=== PATIENT | female | born 1980 | race Caucasian/White ===

== ENCOUNTER 2018-04-28 17:27 | Inpatient (IN) | payer OTHER ==
--- NOTE | 2018-04-28 18:20 | ED ---
Fever HPI - General Chief Complaint: Fever Stated Complaint: abd pain Time Seen by Provider: 04/28/18 17:44 Source: patient, EMS Mode of arrival: EMS Limitations: no limitations - History of Present Illness Initial Comments: His 37-year-old white female presents with a complaint of having fever and chills for approximately 5 days. She has also had a slight cough with yellowish production. She complains of some general myalgias. She also has had some nausea and dry heaves. She states that the symptoms have been worse over the past couple of days. She followed up with her primary care physician this morning and states that her blood pressure was slightly low at approximately 95 systolic and sent to the emergency department are she states that while at the emergency Department they found that she does have a diagnosis of pneumonia as well as some pancreatitis. She states that she has some mild tenderness diffusely to the abdomen. There is no other complaints or modifying factors. - Related Data Home Medications Medication Instructions Recorded Confirmed Cholecalciferol [Vitamin D3] 1,000 unit PO BID 04/28/18 04/28/18 Escitalopram [Lexapro] 10 mg PO DAILY 04/28/18 04/28/18 Fexofenadine HCl [Mirian Allergy] 180 mg PO DAILY 04/28/18 04/28/18 Flaxseed Oil [[place]-3 Flaxseed Oil] 1,000 mg PO BID 04/28/18 04/28/18 Fluticasone Nasal [place] [Flonase 2 spr EA NOSTRIL QAM 04/28/18 04/28/18 Nasal [place]] L.acidoph,Paracasei, B.lactis 1 cap PO DAILY 04/28/18 04/28/18 [Probiotic] Minera Tonic 10 ml PO DAILY 04/28/18 04/28/18 Nervous Fatigue 1 tab PO BID 04/28/18 04/28/18 Nutri Calm 1 tab PO DAILY PRN 04/28/18 04/28/18 Pnv No.95/Ferrous Fum/Folic AC 1 tab PO DAILY 04/28/18 04/28/18 [ Multivitamin Tablet] Vitamin B Complex 1 cap PO DAILY 04/28/18 04/28/18 Allergies Allergy/AdvReac Type Severity Reaction Status Date / Time amoxicillin Allergy Unknown Verified 04/28/18 17:50 cephalexin [From Keflex] Allergy Unknown Verified 04/28/18 17:50 clavulanic acid Allergy Unknown Verified 04/28/18 17:50 [From Augmentin] pseudoephedrine Allergy Unknown Verified 04/28/18 17:50 Review of Systems ROS Statement: Those systems with pertinent positive or pertinent negative responses have been documented in the HPI. ROS Other: All systems not noted in ROS Statement are negative. 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 VITAL SIGNS: Heart rate, blood pressure, respiratory rate reviewed as recorded in nurse's notes. EYES: Pupils are round and reactive. Extraocular movements are intact. No conjunctival / lid redness or swelling. ENT: No external evidence of injury, swelling, or ecchymosis. Airway is patent. Throat is clear. NECK: Nontender. No swelling or evidence of injury. No subcutaneous emphysema. Trachea is midline. No thyroid mass. HEART: Regular rate and rhythm. Good peripheral pulses. LUNGS/CHEST: Breath sounds clear and equal bilaterally. No rales, rhonchi, or wheezes. No ecchymosis, subcutaneous emphysema, or tenderness. ABDOMEN: There is minimal tenderness to the mid abdomen but no distention. No palpable masses or organomegaly. No peritoneal signs. No abdominal wall swelling or ecchymosis. EXTREMITIES: No extremity tenderness. Normal muscle tone and function. No thoracolumbar tenderness. NEUROLOGIC: Sensation is grossly intact. Cranial nerve exam reveals face is symmetrical, tongue is midline, speech is clear. SKIN: No abrasions or ecchymosis is noted. No induration or masses noted. PSYCHIATRIC: Alert and oriented. Appropriate behavior and judgment. Limitations: no limitations Course Vital Signs 04/28/18 17:34 Temperature 98.5 F Pulse Rate 64 Respiratory 18 Rate Blood Pressure 112/50 O2 Sat by Pulse 96 Oximetry Medical Decision Making - Medical Decision Making The patient was seen and examined. All diagnostics were reviewed. The transfer records were also reviewed. The influenza was negative. White blood cell count was normal. The hemoglobin appears stable. The lipase was minimally elevated at 332. The lactic acid was 2.6. There is 3% bands. The patient's chest x-ray shows right lower lobe pneumonia. The ultrasound of the abdomen is suspicious for a gallbladder wall mass measuring 4.0 cm 1.1 cm and the records recommend to rule out cholangiocarcinoma with MRI scan. Patient did receive some Zofran, IV fluids, Tylenol, and Toradol as well as Zithromax and Rocephin at the transferring facility. She states that she is feeling much improved at this time. It is felt as though she would require admission to the hospital for further treatment. No further diagnostics are felt to be necessary at this time. Case will be discussed with internal medicine shortly. Disposition Clinical Impression: Community acquired pneumonia, Gallbladder mass, Fever, Lightheadedness, Pancreatitis, Lactic acidosis Disposition: ADMITTED IP TO THIS HOSP Condition: Fair Is patient prescribed a controlled substance at d/c from ED?: No Time of Disposition: 18:16 Decision Date: 04/28/18 Decision Time: 18:17
[2018-04-28] MEDS ORDERED: SODIUM CHLORIDE 0.9% 1,000 ML IV STA (18:21)
[2018-04-28] MEDS ORDERED: PNEUMONIA PROTOCOL UTILIZED 1 EACH MISC PO PRN (18:21)
[2018-04-28] MEDS ORDERED: [UNRECOGNIZED DRUG - OTHER] PO PRN (18:25)
[2018-04-28] MEDS ORDERED: ONDANSETRON 4 MG/2 ML VIAL IVP PRN (18:27)
[2018-04-28 19:29] VITALS: BMI 33.2
[2018-04-28] MEDS: CHOLECALCIFEROL 1,000 UNIT TAB PO SCH (20:43)
[2018-04-28] MEDS ORDERED: NON-FORMULARY DRUG (Flaxseed Oil [Omega-3 Flaxseed Oil] 1,000 MG) PO SCH (21:00)
[2018-04-28] MEDS ORDERED: [UNRECOGNIZED DRUG - OTHER] PO SCH (21:00)
[2018-04-28] MEDS: SODIUM CHLORIDE 0.9% 1,000 ML IV SCH ×2 (21:48→22:38)
--- NOTE | 2018-04-28 22:35 | P.HPIM ---
History of Present Illness H&P Date: 04/28/18 Chief Complaint: fever and chills 37-year-old female with history of insulinoma status post resection over 10 years ago. Patient presented the hospital due to 5 days history of fevers and chills associated with coughing denies any chest pain denies any sick contacts denies any recent traveling denies any hemoptysis. Patient is nonsmoker. However today patient felt very sick she almost collapsed while taking a shower. She reports spikes of fevers up to 101.7 for which she was taking Tylenol and ibuprofen. She went to see her PCP today who found her to have low blood pressure and sent her to [facility]. Further workup with [facility] showed negative flu test, elevated lactic acid elevated lipase and chest x-ray showing right lower lobe pneumonia. Abdominal ultrasound performed which suggested gallbladder wall thickening and recommendations were to have an MRI of the abdomen performed to rule out cholangiocarcinoma due to thickening suggestive of a mass the size of 4 x 1.1 cm. Patient was transferred from [facility] to our facility for further GI evaluation.. Patient currently denies any abdominal pain but does report earlier nausea without any vomiting however she was having dry heaves. Patient also reported associated diffuse body aches, denies any sore throat denies any runny nose, denies any ear pain, denies any vision or hearing changes Patient denies any GI bleeding denies any chest pain denies any focal neurologic deficits denies any changes in her urine or bowel habits Review of Systems Pertinent positives as noted in HPI. All other systems were reviewed and are negative Past Medical History Past Medical History: No Reported History Additional Past Medical History / Comment(s): insulinoma? 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 Past Anesthesia/Blood Transfusion Reactions: No Reported Reaction Past Psychological History: Anxiety Smoking Status: Never smoker Past Alcohol Use History: None Reported Past Drug Use History: None Reported - Past Family History Father Family Medical History: Hyperlipidemia, Hypertension Additional Family Medical History / Comment(s): parkinsons, MRSA Medications and Allergies Home Medications Medication Instructions Recorded Confirmed Type Cholecalciferol [Vitamin D3] 1,000 unit PO BID 04/28/18 04/28/18 History Escitalopram [Lexapro] 10 mg PO DAILY 04/28/18 04/28/18 History Fexofenadine HCl [Mirian Allergy] 180 mg PO DAILY 04/28/18 04/28/18 History Flaxseed Oil [[place]-3 Flaxseed Oil] 1,000 mg PO BID 04/28/18 04/28/18 History Fluticasone Nasal [place] [Flonase 2 spr EA NOSTRIL QAM 04/28/18 04/28/18 History Nasal [place]] L.acidoph,Paracasei, B.lactis 1 cap PO DAILY 04/28/18 04/28/18 History [Probiotic] Minera Tonic 10 ml PO DAILY 04/28/18 04/28/18 History Nervous Fatigue 1 tab PO BID 04/28/18 04/28/18 History Nutri Calm 1 tab PO DAILY PRN 04/28/18 04/28/18 History Pnv No.95/Ferrous Fum/Folic AC 1 tab PO DAILY 04/28/18 04/28/18 History [ Multivitamin Tablet] Vitamin B Complex 1 cap PO DAILY 04/28/18 04/28/18 History Allergies Allergy/AdvReac Type Severity Reaction Status Date / Time amoxicillin Allergy Unknown Verified 04/28/18 17:50 cephalexin [From Keflex] Allergy Unknown Verified 04/28/18 17:50 clavulanic acid Allergy Unknown Verified 04/28/18 17:50 [From Augmentin] pseudoephedrine Allergy Unknown Verified 04/28/18 17:50 Beef Containing Products AdvReac Abdominal Verified 04/28/18 19:11 [Beef] Pain corn AdvReac Rash/Hives Verified 04/28/18 19:11 latex AdvReac Rash/Hives Verified 04/28/18 20:55 Milk Containing Products AdvReac Abdominal Verified 04/28/18 19:11 [Dairy] Pain Pork/Porcine Containing AdvReac Abdominal Verified 04/28/18 19:11 Products Pain [Pork] wheat AdvReac Abdominal Verified 04/28/18 19:11 Pain Physical Exam Vitals: Vital Signs Temp Pulse Pulse Resp BP BP Pulse Ox 04/28/18 20:40 98.7 F 60 16 105/52 98 04/28/18 19:19 98.7 F 65 16 104/69 96 04/28/18 18:40 20 115/76 97 04/28/18 17:34 98.5 F 64 18 112/50 96 Intake and Output 04/28/18 04/28/18 04/28/18 06:59 14:59 22:59 Other: Weight 105 kg Constitutional: No acute distress, conversant, pleasant, well-developed Eyes: Anicteric sclerae, moist conjunctiva, no lid-lag Pupils equal round reactive to light ENMT: NC/AT Oropharynx clear, no erythema, or exudates Neck: Supple, FROM, no masses, or JVD No carotid bruits No thyromegaly Lungs: Good breath sounds bilaterally, slight crackles over right lower lung Clear to percussion Normal respiratory effort, no accessory muscle use Cardiovascular: Heart regular in rate and rhythm, No murmurs, gallops, or rubs No peripheral edema Abdominal: Soft Nontender, no guarding, rebound or rigidity Abdomen moving with respiration Normoactive bowel sounds No hepatomegaly, No splenomegaly No palpable mass No abdominal wall hernia noted Skin: Normal temperature, tone, texture, turgor No induration No subcutaneous nodules No rash, lesions No ulcers Extremities: No digital cyanosis No clubbing Pedal pulses intact and symmetrical Radial pulses intact and symmetrical No calf tenderness Psychiatric: Alert and oriented to person, place and time Appropriate affect fair judgment Neuro Muscles Strength 5/5 in all 4 extremities Sensation to light touch grossly present throughout Cranial nerves II-XII grossly intact No focal sensory deficits Lymphatics: no palpable cervical or supraclavicular , or inguinal lymph nodes Thrombosis Risk Factor Assmnt - Choose All That Apply Any of the Below Risk Factors Present?: Yes Each Factor Represents 1 point: Obesity (BMI >25) Other Risk Factors: No Other congenital or acquired thrombophilia - If yes, enter type in comment: No Thrombosis Risk Factor Assessment Total Risk Factor Score: 1 Thrombosis Risk Factor Assessment Level: Low Risk Assessment and Plan Assessment: 37 year old female with no significant past medical history except for insulinoma s/p surgical removal over 10 years ago, admitted as inpatient with anticipated length of stay >48 hours due to CAP and acute pancreatitis. she was transferred to our facility from [facility] for GI evaluation due to significant lipase elevation and Abd US suggesting gall bladder wall thickening Plan: Community-acquired pneumonia Azithromycin and Rocephin IV fluid hydration Flu test negative done at [facility] Tylenol for fever Acute pancreatitis Lipase was 332 reference range at [facility] was 3060 Abdominal ultrasound showed suggestion off gallbladder wall thickening concerning for cholangiocarcinoma Patient transferred to our facility for further GI evaluation and consideration for MRI of the abdomen to rule out glandular carcinoma Aggressive IV fluid hydration Nothing by mouth History of anxiety Continue home medications DVT prophylaxis with Lovenox Follow-up morning labs Preformed a thorough record review from recent hospitalization from [facility] as summarized in HPI Surrogate decision-maker: Arturo patient fianc CODE STATUS: Full code Discussed with: Patient, ER, RN Anticipated discharge: 48-[address]: Home A total of 60 minutes was spent on the care of this complex patient more than 50 % of the time was spent in counseling and care coordination.
[2018-04-28] MEDS: ACETAMINOPHEN TAB 500 MG TAB PO PRN (23:34)
[2018-04-29] MEDS: SODIUM CHLORIDE 0.9% 1,000 ML IV SCH ×4 (04:53→21:24)
[2018-04-29 07:56] LABS: HCT 35.9 % (34.0-46.0); HGB 12.2 gm/dL (11.4-16.0); MCH 30.2 pg (25.0-35.0); MCHC 34.1 g/dL (31.0-37.0); MCV 88.3 fL (80.0-100.0); Mean Platelet Volume 7.3; Platelet Count 162 k/uL (150-450); RBC 4.06 m/uL (3.80-5.40); RDW 13.1 % (11.5-15.5); WBC 2.8 k/uL (3.8-10.6)
[2018-04-29 08:30] LABS: ALT 33 U/L (9-52); AST 23 U/L (14-36); Albumin 2.7 g/dL (3.5-5.0); Alkaline Phosphatase 50 U/L (38-126); Anion Gap 4 mmol/L; Blood Urea Nitrogen 9 mg/dL (7-17); Calcium 8.5 mg/dL (8.4-10.2); Carbon Dioxide 24 mmol/L (22-30); Chloride 111 mmol/L (98-107); Glucose 84 mg/dL (74-99); Lipase 47 U/L (23-300); Potassium 4.2 mmol/L (3.5-5.1); Sodium 139 mmol/L (137-145); Total Bilirubin 0.5 mg/dL (0.2-1.3); Total Protein 5.4 g/dL (6.3-8.2)
[2018-04-29 08:43] LABS: Band Neutrophils % 3 %; Basophils # (M) 0.03 k/uL (0-0.2); Eosinophils # (M) 0.03 k/uL (0-0.7); Lymphocytes # (M) 1.18 k/uL (1.0-4.8); Neutrophils % (M) 35 %; Nucleated Red Blood Cells 0 /100 WBC (0-0); Total Cells Counted 100
[2018-04-29 08:44] LABS: Toxic Granulation Present
[2018-04-29] MEDS ORDERED: NON-FORMULARY DRUG (Vitamin B Complex [Vitamin B Complex] 1 CAP) PO SCH (09:00)
[2018-04-29] MEDS ORDERED: [UNRECOGNIZED DRUG - OTHER] PO SCH (09:00)
[2018-04-29] MEDS: CHOLECALCIFEROL 1,000 UNIT TAB PO SCH ×2 (09:44→21:23)
[2018-04-29] MEDS: ENOXAPARIN 40 MG/0.4 ML SYRINGE SQ SCH (09:45)
[2018-04-29] MEDS: ESCITALOPRAM 10 MG TAB PO SCH (09:46)
[2018-04-29] MEDS: FLUTICASONE 50MCG/SPRAY NASAL 16GM EA NOSTRIL SCH (09:48)
[2018-04-29] MEDS: LACTOBACILLUS ACIDOPH & BULGAR 1 EACH PACKET PO SCH (09:49)
[2018-04-29] MEDS: LORATADINE 10 MG TAB PO SCH (09:50)
[2018-04-29] MEDS: PRENATAL VIT-IRON-FOLIC ACID 1 EACH CAP PO SCH (09:51)
[2018-04-29] MEDS: AZITHROMYCIN 500 MG in SODIUM CHLORIDE 0.9% 250 ML IVPB SCH (11:05)
--- NOTE | 2018-04-29 11:40 | P.CONS ---
History of Present Illness - Reason for Consult Consult date: 04/29/18 Possible gallbladder mass pancreatitis Requesting physician: Shea Rebollar - Chief Complaint fever - History of Present Illness 37-year-old female with a past medical history of benign insulinoma s/p resection/distal pancreatectomy at [facility] 2004, generalized anxiety disorder, and central auditory processing delay. Patient transferred from [facility] with complaints of fever 4 days with new development of cough and mild white colored sputum production. Additionally she reports some left lower quadrant and intermittent right upper quadrant abdominal discomfort without constipation diarrhea hematemesis hematochezia melena or weight loss. Denies acholic stools. Urine slightly more concentrated prior to admission but now passing clear yellow urine. She reports being screened for influenza at [facility]. [facility] medical records were reviewed lipase 300 range. LFTs within normal limits. Ultrasound the abdomen was reported showing a possible gallbladder mass 4 cm dictated report not available at time of this dictation. Patient reports she had a chest x-ray that showed a right lower lobe pneumonia. Upon transfer white count 2.8. Hemoglobin 12.2. Platelet 162. LFTs within normal limits. Lipase 47. No history of pancreatitis. No history of alcohol is. No changes in medications or recent travels. No sick contacts. She works at a mental health facility. Review of Systems Constitutional: Denies fever, chills, sweats, weight gain, or loss. History of central processing delay. HEENT: Negative for migraines, blurred vision or loss, earaches, drainage, tinnitus, oral mucosal lesions, dysphagia, or odynophagia. CARDIAC: Negative for chest pain, arrhythmias, or palpitation. RESPIRATORY: Negative for shortness of breath, hemoptysis, admitted with mild cough, and sputum production. GI: See HPI for pertinent findings. : Negative for hematuria, urgency, frequency, polyuria, or dysuria. GYNc: Denies possibility of . Negative vaginal discharge. MUSCULOSKELETAL: Negative for muscle aches, swelling, arthritis, and arthralgias. NEUROLOGIC: Negative for stroke or TIA. ENDOCRINE: Negative for thyroid problems. SKIN: Negative for rash or itching. PSYCHIATRIC: Generalized anxiety disorder. Past Medical History Past Medical History: No Reported History Additional Past Medical History / Comment(s): insulinoma? tail end of pancreas nodule taken out surgically 2004, nodule by pancreas was biopsied and was benign. 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 Past Anesthesia/Blood Transfusion Reactions: No Reported Reaction Past Psychological History: Anxiety Smoking Status: Never smoker Past Alcohol Use History: None Reported Past Drug Use History: None Reported - Past Family History Father Family Medical History: Hyperlipidemia, Hypertension Additional Family Medical History / Comment(s): parkinsons, MRSA Medications and Allergies Home Medications Medication Instructions Recorded Confirmed Type Cholecalciferol [Vitamin D3] 1,000 unit PO BID 04/28/18 04/28/18 History Escitalopram [Lexapro] 10 mg PO DAILY 04/28/18 04/28/18 History Fexofenadine HCl [Mirian Allergy] 180 mg PO DAILY 04/28/18 04/28/18 History Flaxseed Oil [[place]-3 Flaxseed Oil] 1,000 mg PO BID 04/28/18 04/28/18 History Fluticasone Nasal [place] [Flonase 2 spr EA NOSTRIL QAM 04/28/18 04/28/18 History Nasal [place]] L.acidoph,Paracasei, B.lactis 1 cap PO DAILY 04/28/18 04/28/18 History [Probiotic] Minera Tonic 10 ml PO DAILY 04/28/18 04/28/18 History Nervous Fatigue 1 tab PO BID 04/28/18 04/28/18 History Nutri Calm 1 tab PO DAILY PRN 04/28/18 04/28/18 History Pnv No.95/Ferrous Fum/Folic AC 1 tab PO DAILY 04/28/18 04/28/18 History [ Multivitamin Tablet] Vitamin B Complex 1 cap PO DAILY 04/28/18 04/28/18 History Allergies Allergy/AdvReac Type Severity Reaction Status Date / Time amoxicillin Allergy Unknown Verified 04/28/18 17:50 cephalexin [From Keflex] Allergy Unknown Verified 04/28/18 17:50 clavulanic acid Allergy Unknown Verified 04/28/18 17:50 [From Augmentin] pseudoephedrine Allergy Unknown Verified 04/28/18 17:50 Beef Containing Products AdvReac Abdominal Verified 04/28/18 19:11 [Beef] Pain corn AdvReac Rash/Hives Verified 04/28/18 19:11 latex AdvReac Rash/Hives Verified 04/28/18 20:55 Milk Containing Products AdvReac Abdominal Verified 04/28/18 19:11 [Dairy] Pain Pork/Porcine Containing AdvReac Abdominal Verified 04/28/18 19:11 Products Pain [Pork] wheat AdvReac Abdominal Verified 04/28/18 19:11 Pain Physical Exam Vitals: Vital Signs Temp Pulse Pulse Resp BP BP Pulse Ox 04/29/18 05:58 98.1 F 71 17 129/84 95 04/29/18 02:00 98.7 F 04/28/18 23:21 99.1 F 04/28/18 20:40 98.7 F 60 16 105/52 98 04/28/18 19:19 98.7 F 65 16 104/69 96 04/28/18 18:40 20 115/76 97 04/28/18 17:34 98.5 F 64 18 112/50 96 Intake and Output 04/28/18 04/29/18 04/29/18 22:59 06:59 14:59 Intake Total 1200 Balance 1200 Intake: Intake, IV Titration 1200 Amount Sodium Chloride 0.9% 1, 1200 000 ml @ 200 mls/hr IV . Q5H [facility] Rx#:[id number] Other: Voiding Method Toilet Toilet # Voids 1 1 Weight 105 kg General appearance: The patient is alert, oriented, in no acute distress. HET: Head is normocephalic and atraumatic. Pupils are equal and reactive. Oropharynx is clear without lesions. Neck: Supple without lymphadenopathy. Trachea midline. Heart: S1 S2. Regular rate and rhythm. Lungs: No crackles or wheezes are heard. Abdomen: Soft, very mild tenderness right upper quadrant and left lower quadrant , nondistended with bowel sounds. No peritoneal signs. No palpable organomegaly or masses. Extremities: Normal skin color and turgor. No cyanosis, rash, ulceration, clubbing, or edema. Radial and pedal pulses are 2/4 bilaterally. Neurological: No focal deficits. Strength and sensation are grossly intact. Results CBC & Chem 7: 04/29/18 07:31 04/29/18 07:31 Labs: Abnormal Lab Results - Last 24 Hours (Table) 04/28/18 04/29/18 04/29/18 Range/Units 21:20 07:31 07:31 WBC 2.8 L (3.8-10.6) k/uL Neutrophils # (Manual) 1.00 L (1.3-7.7) k/uL Chloride 111 H (98-107) mmol/L Plasma Lactic Acid Gianni 0.6 L (0.7-2.0) mmol/L Total Protein 5.4 L (6.3-8.2) g/dL Albumin 2.7 L (3.5-5.0) g/dL Assessment and Plan (1) Abdominal pain Narrative/Plan: 37-year-old female admitted with multiple constitutional symptoms fever 4 days , cough, with mild intermittent left lower quadrant and right upper quadrant abdominal pain elevated lipase with a history of benign insulinoma status post resection 2004. Ultrasound imaging reported at outside facility possible gallbladder mass with normal liver function tests as well as chest x-ray reporting pneumonia. Current Visit: Yes Status: Acute Code(s): R10.9 - UNSPECIFIED ABDOMINAL PAIN SNOMED Code(s): 46615905 (2) Fever Current Visit: Yes Status: Acute Code(s): R50.9 - FEVER, UNSPECIFIED SNOMED Code(s): 555863113 (3) Insulinoma Narrative/Plan: Benign insulinoma status post distal pancreatectomy [facility] 2004 Current Visit: Yes Status: Acute Code(s): D13.7 - BENIGN NEOPLASM OF ENDOCRINE PANCREAS SNOMED Code(s): 080090141 (4) History of pancreatic surgery Current Visit: Yes Status: Acute Code(s): Z98.890 - OTHER SPECIFIED POSTPROCEDURAL STATES SNOMED Code(s): 477795095 (5) Generalized anxiety disorder Current Visit: Yes Status: Acute Code(s): F41.1 - GENERALIZED ANXIETY DISORDER SNOMED Code(s): 43101712 (6) Elevated lipase Narrative/Plan: Nonspecific elevation lipase in the 300 range at [facility] repeated resulted within normal limits upon transfer to [facility] with no history of pancreatitis. Clinically she does not exhibit symptoms suggestive of acute pancreatitis. Current Visit: Yes Status: Acute Code(s): R74.8 - ABNORMAL LEVELS OF OTHER SERUM ENZYMES SNOMED Code(s): 004742019 (7) Pneumonia Current Visit: Yes Status: Acute Code(s): J18.9 - PNEUMONIA, UNSPECIFIED ORGANISM SNOMED Code(s): 752626833 Plan: 1. Case was discussed with radiologist Dr. Vance. Will repeat right upper quadrant abdominal ultrasound and compare to previous study from [facility]. If gallbladder abnormality is identified we'll proceed with CT/MRI abdomen with contrast as indicated. If unremarkable no further workup necessary at this time. 2. Clear liquid diet as tolerated AAT. Thank you for this kind referral and the opportunity to participate in the care of your patient. This consultation was discussed with Dr. Tapia. The impression and plan of care have been directed as dictated.
--- NOTE | 2018-04-29 11:42 | US ---
EXAMINATION TYPE: US abdomen limited DATE OF EXAM: 04/29/2018 COMPARISON: Study done yesterday at [place] CLINICAL HISTORY: rule out gallbladder mass. EXAM MEASUREMENTS: Liver Length: 14.3 cm Gallbladder Wall: 0.6 cm CBD: 0.3 cm Right Kidney: 10.2 x 4.3 x 4.9 cm Pancreas: portion of head and tail obscured by bowel gas, portions visualized wnl Liver: wnl Gallbladder: wall thickened, no luminal stones Evidence for sonographic Redd's sign: no CBD: wnl Right Kidney: wnl There is no ascites. Right kidney shows normal cortical medullary differentiation. Thickening of the gallbladder wall is suggested. IMPRESSION: There may be gallbladder wall thickening. CT scan may be of benefit. Exam is limited.
[2018-04-29] MEDS: ACETAMINOPHEN TAB 500 MG TAB PO PRN (13:20)
--- NOTE | 2018-04-29 16:14 | XR ---
EXAMINATION TYPE: XR chest 2V DATE OF EXAM: 04/29/2018 COMPARISON: NONE HISTORY: Pneumonia TECHNIQUE: Frontal and lateral views of the chest are obtained. FINDINGS: There is airspace disease in the right lower lobe. No pneumothorax or pleural effusion. Ca rdiac mediastinal silhouette, pulmonary vascularity and jonah within normal limits accounting for rota tion. IMPRESSION: Right lower lobe pneumonia, follow-up to resolution.
--- NOTE | 2018-04-29 17:23 | P.PN ---
Subjective Progress Note Date: 04/29/18 Principal diagnosis: Fevers Patient is a 37-year-old female with a past medical history of insulinoma status post surgical resection, anxiety, and obesity who initially was seen at [facility] and was subsequently transferred here secondary to concern for possible cholangiocarcinoma and pneumonia. Initially she went to see her PCP where she was found to have low blood pressure and he sent her [facility]. There she had an abdominal ultrasound which showed gallbladder wall thickening and recommendations for an MRI to rule out cholangiocarcinoma. Her lipase is also elevated and the thought she had pancreatitis. She received IV fluids, antibiotics, and pain medications. Her influenza was negative. On arrival here vital signs within normal limits. She was continued on IV fluids and antibiotics. She was made nothing by mouth. GI saw the patient and recommended repeat abdominal ultrasound. This showed some gallbladder wall thickening but no masses or evidence of gallstones. Her repeat lipase was within normal limits and excluded pancreatitis. Patient seen and examined at bedside. Her cough and shortness of breath are improved. She still feeling overall weak. She is having some swelling in her hands. She still has some left lower quadrant pain. She denies any right upper quadrant pain. No diarrhea or constipation. She has been having nausea but no vomiting. We went over her test results in detail. Objective - Vital Signs Vital signs: Vital Signs Temp 96.9 F L 04/29/18 11:52 Pulse 69 04/29/18 11:52 Resp 17 04/29/18 11:52 BP 107/58 04/29/18 11:52 Pulse Ox 98 04/29/18 11:52 Intake & Output 04/28/18 04/29/18 04/29/18 18:59 06:59 18:59 Intake Total 1200 1600 Balance 1200 1600 Weight 105.233 kg 105 kg Intake: Intake, IV Titration 1200 1600 Amount Sodium Chloride 0.9% 1, 1200 1600 000 ml @ 200 mls/hr IV . Q5H MIKAELA Rx#:[id number] Other: Voiding Method Toilet Toilet # Voids 1 - Exam General: Ill-appearing, no distress, appears at stated age Derm: warm, dry Head: atraumatic, normocephalic, symmetric Eyes: EOMI, no lid lag, anicteric sclera Mouth: no lip lesion, mucus membranes moist Cardiovascular: S1S2 reg, no murmur, positive posterior tibial pulse bilateral, Lungs: Rhonchi right base, no accessory muscle use Abdominal: soft, nontender to palpation, no guarding, no appreciable organomegaly Ext: no gross muscle atrophy, no edema, no contractures, diffuse inflammation of the DIP and PIP of fingers Neuro: CN II-XI grossly intact, no focal neuro deficits Psych: Alert, oriented, appropriate affect - Labs CBC & Chem 7: 04/29/18 07:31 04/29/18 07:31 Labs: Abnormal Lab Results - Last 24 Hours (Table) 04/28/18 04/29/18 04/29/18 Range/Units 21:20 07:31 07:31 WBC 2.8 L (3.8-10.6) k/uL Neutrophils # (Manual) 1.00 L (1.3-7.7) k/uL Chloride 111 H (98-107) mmol/L Plasma Lactic Acid Gianni 0.6 L (0.7-2.0) mmol/L Total Protein 5.4 L (6.3-8.2) g/dL Albumin 2.7 L (3.5-5.0) g/dL Assessment and Plan Assessment: Right lower lobe community-acquired pneumonia -IV fluids -Rocephin and Zithromax -Pulmonary hygiene -Sputum culture if able -Follow chest x-ray until clear Gallbladder wall thickening -The GI recommendations appreciated, no further inpatient evaluation at this point in time Acute pancreatitis ruled out with rapid normalization of pancreatic enzymes History of insulinoma -Status post surgical resection Anxiety - continue home medications DVT prophylaxis: Lovenox Discussed with: Patient, family, nursing Anticipated discharge: 24-[address]: Home A total of 35 minutes was spent on the care of this complex patient more than 50 % of the time was spent in counseling and care coordination.
[2018-04-30] MEDS: ACETAMINOPHEN TAB 500 MG TAB PO PRN (02:52)
[2018-04-30] MEDS: SODIUM CHLORIDE 0.9% 1,000 ML IV SCH ×3 (02:54→08:02)
[2018-04-30 05:38] VITALS: TEMP 98.4
[2018-04-30] MEDS: LACTOBACILLUS ACIDOPH & BULGAR 1 EACH PACKET PO SCH (08:00)
[2018-04-30] MEDS: CHOLECALCIFEROL 1,000 UNIT TAB PO SCH (08:00)
[2018-04-30] MEDS: ESCITALOPRAM 10 MG TAB PO SCH (08:00)
[2018-04-30] MEDS: FLUTICASONE 50MCG/SPRAY NASAL 16GM EA NOSTRIL SCH (08:00)
[2018-04-30] MEDS: ENOXAPARIN 40 MG/0.4 ML SYRINGE SQ SCH (08:01)
[2018-04-30] MEDS: LORATADINE 10 MG TAB PO SCH (08:01)
[2018-04-30] MEDS: PRENATAL VIT-IRON-FOLIC ACID 1 EACH CAP PO SCH (08:01)
[2018-04-30] MEDS: AZITHROMYCIN 500 MG in SODIUM CHLORIDE 0.9% 250 ML IVPB SCH (08:51)
[2018-04-30 08:53] LABS: HCT 35.5 % (34.0-46.0); HGB 12.1 gm/dL (11.4-16.0); MCH 30.1 pg (25.0-35.0); MCHC 34.1 g/dL (31.0-37.0); MCV 88.4 fL (80.0-100.0); Mean Platelet Volume 7.2; Platelet Count 178 k/uL (150-450); RBC 4.02 m/uL (3.80-5.40); WBC 2.6 k/uL (3.8-10.6)
[2018-04-30 09:28] LABS: Anion Gap 6 mmol/L; Blood Urea Nitrogen 6 mg/dL (7-17); Calcium 8.9 mg/dL (8.4-10.2); Carbon Dioxide 23 mmol/L (22-30); Chloride 112 mmol/L (98-107); Glucose 122 mg/dL (74-99); Lipase 49 U/L (23-300); Potassium 3.8 mmol/L (3.5-5.1); Sodium 141 mmol/L (137-145)
--- NOTE | 2018-04-30 11:05 | P.PN ---
Subjective Progress Note Date: 04/30/18 Principal diagnosis: Fever pneumonia abnormal abdominal ultrasound Feels better today. Afebrile. Tolerating clear liquids. Repeat ultrasound abdomen yesterday did not show abnormality previously seen at [facility] upon transfer. Lipase within normal limits. Denies abdominal pain. Objective - Vital Signs Vital signs: Vital Signs Temp 98.4 F 04/30/18 05:00 Pulse 58 L 04/30/18 05:00 Resp 16 04/30/18 05:00 BP 93/59 04/30/18 05:00 Pulse Ox 97 04/30/18 05:00 Intake & Output 04/29/18 04/30/18 04/30/18 18:59 06:59 18:59 Intake Total 1600 2760 Balance 1600 2760 Intake: Intake, IV Titration 1600 2400 Amount Sodium Chloride 0.9% 1, 1600 2400 000 ml @ 200 mls/hr IV . Q5H MIKAELA Rx#:[id number] Oral 360 Other: Voiding Method Toilet Toilet # Voids 3 - Exam General appearance: The patient is alert, oriented, in no acute distress. HET: Head is normocephalic and atraumatic. Pupils are equal and reactive. Oropharynx is clear without lesions. Neck: Supple without lymphadenopathy. Trachea midline. Heart: S1 S2. Regular rate and rhythm. Lungs: No crackles or wheezes are heard. Diminished in right base mild crackles. Abdomen: Soft, nontender, nondistended with bowel sounds. No peritoneal signs. No palpable organomegaly or masses. Extremities: Normal skin color and turgor. No cyanosis, rash, ulceration, clubbing, or edema. Radial and pedal pulses are 2/4 bilaterally. Neurological: No focal deficits. Strength and sensation are grossly intact. - Labs CBC & Chem 7: 04/30/18 08:34 04/30/18 08:34 Labs: Abnormal Lab Results - Last 24 Hours (Table) 04/30/18 04/30/18 Range/Units 08:34 08:34 WBC 2.6 L (3.8-10.6) k/uL Chloride 112 H (98-107) mmol/L BUN 6 L (7-17) mg/dL Glucose 122 H (74-99) mg/dL Assessment and Plan (1) Abdominal pain Narrative/Plan: 37-year-old female admitted with multiple constitutional symptoms fever 4 days , cough, with mild intermittent left lower quadrant and right upper quadrant abdominal pain elevated lipase with a history of benign insulinoma status post resection 2004. Ultrasound imaging reported at outside facility possible gallbladder mass with normal liver function tests as well as chest x-ray reporting pneumonia. Repeat ultrasound abdominal imaging did not demonstrate previous abnormality. Status: Acute Code(s): R10.9 - UNSPECIFIED ABDOMINAL PAIN SNOMED Code(s): 39161788 (2) Fever Status: Acute Code(s): R50.9 - FEVER, UNSPECIFIED SNOMED Code(s): 991961808 (3) Insulinoma Narrative/Plan: Benign insulinoma status post distal pancreatectomy [facility] 2004 Status: Acute Code(s): D13.7 - BENIGN NEOPLASM OF ENDOCRINE PANCREAS SNOMED Code(s): 227325063 (4) History of pancreatic surgery Status: Acute Code(s): Z98.890 - OTHER SPECIFIED POSTPROCEDURAL STATES SNOMED Code(s): 701113439 (5) Generalized anxiety disorder Status: Acute Code(s): F41.1 - GENERALIZED ANXIETY DISORDER SNOMED Code(s): 86765250 (6) Elevated lipase Narrative/Plan: Nonspecific elevation lipase in the 300 range at [facility] repeated resulted within normal limits upon transfer to [facility] with no history of pancreatitis. Clinically she does not exhibit symptoms suggestive of acute pancreatitis. Status: Acute Code(s): R74.8 - ABNORMAL LEVELS OF OTHER SERUM ENZYMES SNOMED Code(s): 425962118 (7) Pneumonia Status: Acute Code(s): J18.9 - PNEUMONIA, UNSPECIFIED ORGANISM SNOMED Code(s ): 948242068 Plan: 1. Advance diet. Continue with antibiotics for treatment of pneumonia. From a GI standpoint no further workup. Patient was advised by wait staff to repeat CT abdomen with contrast in 3 months and to follow with PCP 7-10 days after discharge. She verbalized following up with Dr. Ko Everett in [place]. Will provide a copy of CT recommendation to his office. We'll follow as needed and be available for questions or concerns. Assessment and plan of care discussed with Dr. Tapia
[2018-04-30 12:15] VITALS: BP 156/64; PULSE 60; RESP 18
--- NOTE | 2018-04-30 21:35 | P.DS ---
Providers Date of admission: 04/28/18 18:21 Expected date of discharge: 04/30/18 Attending physician: Rodney Rosen MD Consults: GI Primary care physician: Be Everett MD Hospital Course: Discharge Diagnosis: 1. Right lower lobe community-acquired pneumonia 2. Gallbladder wall thickening 3. Hospital Course: Patient is a 37-year-old female with a past medical history of insulinoma status post surgical resection, anxiety, and obesity who initially was seen at [facility] and was subsequently transferred here secondary to concern for possible cholangiocarcinoma and pneumonia. Initially she went to see her PCP where she was found to have low blood pressure and he sent her [facility]. There she had an abdominal ultrasound which showed gallbladder wall thickening and recommendations for an MRI to rule out cholangiocarcinoma. Her lipase is also elevated and the thought she had pancreatitis. She received IV fluids, antibiotics, and pain medications. Her influenza was negative. On arrival here vital signs within normal limits. She was continued on IV fluids and antibiotics. She was made nothing by mouth. GI saw the patient and recommended repeat abdominal ultrasound. This showed some gallbladder wall thickening but no masses or evidence of gallstones. Her repeat lipase was within normal limits and excluded pancreatitis. Chest x-ray did reveal right lower lobe pneumonia. She was on Zithromax and Rocephin however she had a history of ALLERGY to Keflex and she had developed some itching and redness over the chest area. She did not develop any signs of hypoxia. She did not have an elevated white blood cell count. She was up and walking around but still complaining of some muscle aches and pains and not feeling completely back to normal. She is determined stable for discharge home with outpatient follow-up. She will complete the rest of her course of antibiotics with Levaquin. I have asked her to stay off work through May 05. I've also suggested that she had a follow-up chest x-ray on her appointment with her physician to ensure clearance of the pneumonia. Also asked her to ensure that she takes it at least 64 ounces of water daily. Is able to acknowledge all this was added to her discharge paperwork. She will follow up with Dr. anna ruvalcaba in [address] abdomen and pelvis to ensure that there are no changes from the gallbladder. She was subsequently discharged home. Patient seen and examined at bedside. Cough is better, difficulty breathing better, no nausea, vomiting, or abdominal pain. Vital signs reviewed and stable. General: non toxic, no distress, appears at stated age Derm: Erythema over bilateral cheeks and chest wall warm, dry Head: atraumatic, normocephalic, symmetric Eyes: EOMI, no lid lag, anicteric sclera Mouth: no lip lesion, mucus membranes moist Cardiovascular: S1S2 reg, no murmur, positive posterior tibial pulse bilateral, Lungs: CTA bilateral, no rhonchi, no rales , no accessory muscle use Abdominal: soft, nontender to palpation, no guarding, no appreciable organomegaly Ext: no gross muscle atrophy, no edema, no contractures Neuro: CN II-XI grossly intact, no focal neuro deficits Psych: Alert, oriented, appropriate affect A total of 35 minutes of time were spent preparing this complex discharge summary . Pertinent Studies: Color ultrasound-mild gallbladder wall thickening, no stones, no sludge Chest x-ray-right lower lobe pneumonia Patient Condition at Discharge: Stable Plan - Discharge Summary New Discharge Prescriptions: New Levofloxacin [Levaquin] 750 mg PO DAILY 4 Days #4 tab Continue Vitamin B Complex 1 cap PO DAILY Cholecalciferol [Vitamin D3] 1,000 unit PO BID Nutri Calm 1 tab PO DAILY PRN PRN Reason: Anxiety Nervous Fatigue 1 tab PO BID Minera Tonic 10 ml PO DAILY L.acidoph,Paracasei, B.lactis [Probiotic] 1 cap PO DAILY Fluticasone Nasal [place] [Flonase Nasal [place]] 2 spr EA NOSTRIL QAM Flaxseed Oil [[place]-3 Flaxseed Oil] 1,000 mg PO BID Fexofenadine HCl [Mirian Allergy] 180 mg PO DAILY Escitalopram [Lexapro] 10 mg PO DAILY Pnv No.95/Ferrous Fum/Folic AC [ Multivitamin Tablet] 1 tab PO DAILY Discharge Medication List Cholecalciferol [Vitamin D3] 1,000 unit PO BID 04/28/18 [History] Escitalopram [Lexapro] 10 mg PO DAILY 04/28/18 [History] Fexofenadine HCl [Mirian Allergy] 180 mg PO DAILY 04/28/18 [History] Flaxseed Oil [[place]-3 Flaxseed Oil] 1,000 mg PO BID 04/28/18 [History] Fluticasone Nasal [place] [Flonase Nasal [place]] 2 spr EA NOSTRIL QAM 04/28/18 [ History] L.acidoph,Paracasei, B.lactis [Probiotic] 1 cap PO DAILY 04/28/18 [History] Minera Tonic 10 ml PO DAILY 04/28/18 [History] Nervous Fatigue 1 tab PO BID 04/28/18 [History] Nutri Calm 1 tab PO DAILY PRN 04/28/18 [History] Pnv No.95/Ferrous Fum/Folic AC [ Multivitamin Tablet] 1 tab PO DAILY [History] Vitamin B Complex 1 cap PO DAILY 04/28/18 [History] Levofloxacin [Levaquin] 750 mg PO DAILY 4 Days #4 tab 04/30/18 [Rx] Follow up Appointment(s)/Referral(s): Be Eevrett MD [Primary Care Provider] - 05/05/18 8:00 am Iggy Tapia MD [STAFF PHYSICIAN] - 07/17/18 2:15 pm (3 months ) Ambulatory/Diagnostic Orders: XR chest 2V [RAD.AMB] Time Frame: 1 Week, Location: None Selected XR chest 2V [RAD.AMB] Time Frame: 1 Week, Location: None Selected Patient Instructions/Handouts: Levofloxacin (By mouth), Pneumonia (DC) Care Plan Goals (MU): Regular diet Activity as tolerated Please try to keep up on fluids, with 64 ounces of fluid a day.. or about 4 bottles of water daily. Repeat chest x-ray next week to ensure resolution of pneumonia Discharge/Stand Alone Forms: Work/Release Restrictions Form Discharge Disposition: HOME SELF-CARE
[2018-05-01] MEDS ORDERED: AZITHROMYCIN 500 MG TAB PO SCH (09:00)
== END 2018-04-30 16:15 | disposition home or self-care (01) | DRG 194 ==
LOC: EC 17:27 → 3NMEDONC 18:21
PROVIDERS: ADMIT Family Medicine; ATTEND Family Medicine
DX: J18.9 Pneumonia, unspecified organism (principal); E87.2 Acidosis; Z90.411 Acquired partial absence of pancreas; Z86.018 Personal history of other benign neoplasm; F41.1 Generalized anxiety disorder; K82.9 Disease of gallbladder, unspecified; Z82.0 Family history of epilepsy and other diseases of the nervous system; Z82.49 Family history of ischemic heart disease and other diseases of the circulatory system; Z88.1 Allergy status to other antibiotic agents; Z88.0 Allergy status to penicillin; Z91.040 Latex allergy status; Z91.011 Allergy to milk products; Z88.8 Allergy status to other drugs, medicaments and biological substances; Z91.018 Allergy to other foods; Z79.899 Other long term (current) drug therapy; E66.9 Obesity, unspecified; Z68.33 Body mass index [BMI] 33.0-33.9, adult; L29.8 Other pruritus; T36.1X5A Adverse effect of cephalosporins and other beta-lactam antibiotics, initial encounter; T36.3X5A Adverse effect of macrolides, initial encounter
CPT/HCPCS: 71046; 76705; 80048; 80053; 83605; 83690; 85025; 85027; 99285

== ENCOUNTER 2019-07-19 20:33 | Inpatient (IN) | payer BC, OTHER ==
[2019-07-19] MEDS ORDERED: MORPHINE SULFATE 4 MG/ML SYRINGE IVP PRN (20:57)
[2019-07-19] MEDS ORDERED: ONDANSETRON 4 MG/2 ML VIAL IVP PRN (20:57)
[2019-07-19] MEDS ORDERED: MORPHINE SULFATE 4 MG/ML SYRINGE IVP STA (20:57)
[2019-07-19] MEDS ORDERED: KETOROLAC 30 MG/ML 1 ML VIAL IVP STA (20:57)
[2019-07-19] MEDS ORDERED: LEVOFLOXACIN 750MG-D5W PMX 750 MG in DEXTROSE/WATER 1 150ML.BAG IVPB STA (21:02)
--- NOTE | 2019-07-19 21:06 | ED ---
Recheck HPI - General Chief Complaint: Abdominal Pain Stated Complaint: L side pain Time Seen by Provider: 07/19/19 20:35 Source: EMS, RN notes reviewed, old records reviewed Mode of arrival: EMS Limitations: no limitations - History of Present Illness Initial Comments: This is a 38-year-old female to the ER for evaluation of a presented today is transfer for kidney stone pain urinary tract infection, getting. Patient with no significant nausea vomiting no diarrhea no current fevers. Admits flank pain and discomfort when the pain started it was severe and now it is much improved. Patient has no significant medical history she has had pancreatitis in the past and [place] thought that she was having pancreatitis today. Complaint: abnormal lab -: hour(s) Returns Today for: other (sent for eval and treatment) Symptoms Since Prior Visit: no new symptoms Context: other (presented for pain) Associated Symptoms: nausea, abdominal pain (flank pain) - Related Data Home Medications Medication Instructions Recorded Confirmed Escitalopram [Lexapro] 10 mg PO DAILY 04/28/18 07/19/19 Fluticasone Nasal [place] [Flonase 2 spr EA NOSTRIL QAM PRN 04/28/18 07/19/19 Nasal [place]] Nutri Calm 1 tab PO HS PRN 04/28/18 07/19/19 Vitamin B Complex 1 cap PO DAILY 04/28/18 07/19/19 Ascorbic Acid [Vitamin C] 500 mg PO DAILY 07/19/19 07/19/19 Distress Remedy Drops 10 drops PO DAILY PRN 07/19/19 07/19/19 Flaxseed Oil 2,000 mg PO HS 07/19/19 07/19/19 Julee Protein 1 tab PO BID 07/19/19 07/19/19 Magnesium 200 mg PO HS 07/19/19 07/19/19 Minera-Chi Tonic 15 ml PO W/SUPPER 07/19/19 07/19/19 Nervous Fatigue Supplement 1 tab PO BID 07/19/19 07/19/19 Probiotic 11 2 tab PO DAILY 07/19/19 07/19/19 Previous Rx's Medication Instructions Recorded Acetaminophen Tab [Tylenol] 650 mg PO Q6HR PRN #30 tab 07/22/19 Levofloxacin [Levaquin] 500 mg PO DAILY 5 Days #5 tab 07/22/19 Polyethylene Glycol 3350 [Miralax] 17 gm PO DAILY #10 packet 07/22/19 Allergies Allergy/AdvReac Type Severity Reaction Status Date / Time amoxicillin Allergy Unknown Verified 07/19/19 22:44 cephalexin [From Keflex] Allergy Unknown Verified 07/19/19 22:44 clavulanic acid Allergy Unknown Verified 07/19/19 22:44 [From Augmentin] pseudoephedrine Allergy Unknown Verified 07/19/19 22:44 Beef Containing Products AdvReac Abdominal Verified 07/19/19 22:44 [Beef] Pain corn AdvReac Rash/Hives Verified 07/19/19 22:44 latex AdvReac Rash/Hives Verified 07/19/19 22:44 Milk Containing Products AdvReac Abdominal Verified 07/19/19 22:44 [Dairy] Pain Pork/Porcine Containing AdvReac Abdominal Verified 07/19/19 22:44 Products Pain [Pork] wheat AdvReac Abdominal Verified 07/19/19 22:44 Pain Review of Systems ROS Statement: Those systems with pertinent positive or pertinent negative responses have been documented in the HPI. ROS Other: All systems not noted in ROS Statement are negative. Past Medical History Past Medical History: No Reported History Additional Past Medical History / Comment(s): insulinoma? tail end of pancreas nodule taken out surgically 2004, nodule by pancreas was biopsied and was benign. 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 Past Anesthesia/Blood Transfusion Reactions: No Reported Reaction Past Psychological History: Anxiety Smoking Status: Never smoker Past Alcohol Use History: None Reported Past Drug Use History: None Reported - Past Family History Father Family Medical History: Hyperlipidemia, Hypertension Additional Family Medical History / Comment(s): parkinsons, MRSA Mother Family Medical History: No Reported History General Exam Limitations: no limitations General appearance: alert, in no apparent distress Head exam: Present: atraumatic, normocephalic, normal inspection Eye exam: Present: normal appearance, PERRL, EOMI. Absent: scleral icterus, conjunctival injection, periorbital swelling ENT exam: Present: normal exam, mucous membranes moist Neck exam: Present: normal inspection. Absent: tenderness, meningismus, lymphadenopathy Respiratory exam: Present: normal lung sounds bilaterally. Absent: respiratory distress, wheezes, rales, rhonchi, stridor Cardiovascular Exam: Present: regular rate, normal rhythm, normal heart sounds. Absent: systolic murmur, diastolic murmur, rubs, gallop, clicks GI/Abdominal exam: Present: soft, normal bowel sounds. Absent: distended, tenderness, guarding, rebound, rigid Extremities exam: Present: normal inspection, full ROM, normal capillary refill. Absent: tenderness, pedal edema, joint swelling, calf tenderness Back exam: Present: normal inspection Neurological exam: Present: alert, oriented X3, CN II-XII intact Psychiatric exam: Present: normal affect, normal mood Skin exam: Present: warm, dry, intact, normal color. Absent: rash Course Vital Signs 07/19/19 20:38 Temperature 98.2 F Respiratory 18 Rate Blood Pressure 128/75 O2 Sat by Pulse 98 Oximetry - Reevaluation(s) Reevaluation #1: 07/19/19 21:03 Record including transfer paperwork is reviewed Reevaluation #2: 07/19/19 21:03 did speak with patient's attending physician regarding transfer Medical Decision Making - Medical Decision Making 38-year-old female except as in transfer for evaluation of kidney stone aerogenic infection possible septic stone. Patient without fever, symptoms and pain is controlled. Patient be admitted for urology evaluation - Lab Data Result diagrams: 07/22/19 07:11 07/22/19 07:11 Disposition Clinical Impression: Acute pyelonephritis, Calculus of ureter, Calculus of kidney, Hydronephrosis with renal and ureteral calculous obstruction Disposition: ADMITTED IP TO THIS [facility] Condition: Good Is patient prescribed a controlled substance at d/c from ED?: No
[2019-07-19 22:49] LABS: Appearance,Urine Cloudy (Clear); Bacteria,Urine Rare /hpf; Bilirubin,Urine Negative (Negative); Blood,Urine Moderate (Negative); Color,Urine Yellow; Glucose,Urine (UA) Negative (Negative); Ketones,Urine Negative (Negative); Leukocyte Esterase,Urine Large (Negative); Nitrite,Urine Positive (Negative); Protein,Urine Trace (Negative); RBC,Urine >182 /hpf (0-5); Specific Gravity,Urine 1.017 (1.001-1.035); Squamous Epithelial Cell,Urine <1 /hpf (0-4); Urobilinogen,Urine <2.0 mg/dL (<2.0); WBC,Urine >182 /hpf (0-5)
[2019-07-20] MEDS: KETOROLAC 30 MG/ML 1 ML VIAL IVP PRN (08:14)
[2019-07-20] MEDS ORDERED: [UNRECOGNIZED DRUG - OTHER] PO PRN (13:19)
[2019-07-20] MEDS ORDERED: FLUTICASONE 50MCG/SPRAY NASAL 16GM EA NOSTRIL PRN (13:19)
--- NOTE | 2019-07-20 13:26 | P.GSCN ---
History of Present Illness Consult date: 07/20/19 Reason for Consult: Ureteral calculus, UTI Requesting physician: Wisam Fowler History of present illness: The patient is a 38-year-old white female with no history of urolithiasis. She presented yesterday to [facility] with left flank pain. A computed tomography scan was obtained, revealing mild left hydronephrosis due to a 4 mm left proximal ureteral calculus. A 6 mm right renal calculus was seen, as well as 2 left renal calculi measuring up to 5 mm. Urinalysis showed evidence of infection, and she was transferred to [facility] for further management. 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, all 4 wisdom teeth surgically removed Past Anesthesia/Blood Transfusion Reactions: No Reported Reaction Past Psychological History: Anxiety, Depression, Panic Disorder Additional Psychological History / Comment(s): pt has a history of panic attacks, last one was 2017 Smoking Status: Never smoker Past Alcohol Use History: None Reported Past Drug Use History: None Reported - Past Family History Father Family Medical History: COPD, Deep Vein Thrombosis (DVT), Hyperlipidemia, Hypertension, Vascular Disorder Additional Family Medical History / Comment(s): parkinsons, MRSA Mother Family Medical History: No Reported History Medications and Allergies Home Medications Medication Instructions Recorded Confirmed Type Escitalopram [Lexapro] 10 mg PO DAILY 04/28/18 07/19/19 History Fluticasone Nasal [place] [Flonase 2 spr EA NOSTRIL QAM PRN 04/28/18 07/19/19 History Nasal [place]] Nutri Calm 1 tab PO HS PRN 04/28/18 07/19/19 History Vitamin B Complex 1 cap PO DAILY 04/28/18 07/19/19 History Ascorbic Acid [Vitamin C] 500 mg PO DAILY 07/19/19 07/19/19 History Distress Remedy Drops 10 drops PO DAILY PRN 07/19/19 07/19/19 History Flaxseed Oil 2,000 mg PO HS 07/19/19 07/19/19 History Julee Protein 1 tab PO BID 07/19/19 07/19/19 History Magnesium 200 mg PO HS 07/19/19 07/19/19 History Minera-Chi Tonic 15 ml PO W/SUPPER 07/19/19 07/19/19 History Nervous Fatigue Supplement 1 tab PO BID 07/19/19 07/19/19 History Probiotic 11 2 tab PO DAILY 07/19/19 07/19/19 History Allergies Allergy/AdvReac Type Severity Reaction Status Date / Time amoxicillin Allergy Unknown Verified 07/19/19 22:44 cephalexin [From Keflex] Allergy Unknown Verified 07/19/19 22:44 clavulanic acid Allergy Unknown Verified 07/19/19 22:44 [From Augmentin] pseudoephedrine Allergy Unknown Verified 07/19/19 22:44 Beef Containing Products AdvReac Abdominal Verified 07/19/19 22:44 [Beef] Pain corn AdvReac Rash/Hives Verified 07/19/19 22:44 latex AdvReac Rash/Hives Verified 07/19/19 22:44 Milk Containing Products AdvReac Abdominal Verified 07/19/19 22:44 [Dairy] Pain Pork/Porcine Containing AdvReac Abdominal Verified 07/19/19 22:44 Products Pain [Pork] wheat AdvReac Abdominal Verified 07/19/19 22:44 Pain Surgical - Exam Vital Signs Temp Resp BP Pulse Ox 98.2 F 18 128/75 98 07/19/19 20:38 07/19/19 20:38 07/19/19 20:38 07/19/19 20:38 - General well developed, well nourished, no distress - Respiratory normal respiratory effort - Abdomen Abdomen: soft, tender (Mild left-sided tenderness), no guarding, no rigid, no rebound, no distended - Psychiatric oriented to time, oriented to person, oriented to place, speech is normal, memory intact Results - Labs Abnormal Lab Results - Last 24 Hours (Table) 07/19/19 Range/Units 22:03 Urine Appearance Cloudy H (Clear) Urine Protein Trace H (Negative) Urine Blood Moderate H (Negative) Urine Nitrite Positive H (Negative) Ur Leukocyte Esterase Large H (Negative) Urine RBC >182 H (0-5) /hpf Urine WBC >182 H (0-5) /hpf Urine Bacteria Rare H (None) /hpf Microbiology - Last 24 Hours (Table) 07/19/19 22:03 Urine Culture - Preliminary Urine,Voided - Imaging CT scan - abdomen: report reviewed, image reviewed Assessment and Plan (1) Acute pyelonephritis Current Visit: Yes Status: Acute Code(s): N10 - ACUTE PYELONEPHRITIS SNOMED Code(s): 09918695 (2) Calculus of kidney Current Visit: Yes Status: Acute Code(s): N20.0 - CALCULUS OF KIDNEY SNOMED Code(s): 58058690 (3) Calculus of ureter Current Visit: Yes Status: Acute Code(s): N20.1 - CALCULUS OF URETER SNOMED Code(s): 08648299 (4) Hydronephrosis with renal and ureteral calculous obstruction Current Visit: Yes Status: Acute Code(s): N13.2 - HYDRONEPHROSIS WITH RENAL AND URETERAL CALCULOUS OBSTRUCTION SNOMED Code(s): 522357556 Plan: I had a lengthy discussion with the patient, her , and her mother. I explained that she has acute left pyelonephritis complicated by an obstructing left proximal ureteral calculus. She is currently receiving Levaquin, pending the urine culture result. I have suggested she undergo placement of a left ureteral stent. The procedure was reviewed in detail, including the rationale and potential risks which include anesthesia, bleeding, infection, inability to place the stent, and ureteral injury. I discussed with him the possible need for a nephrostomy tube. I have ordered gentamicin, in the event she has an organism resistant to quinolones. Unfortunately, she just ate lunch and therefore it may be necessary to defer stent placement until tomorrow. Time with Patient: Greater than 30
[2019-07-20] MEDS ORDERED: GENTAMICIN 400 MG in SODIUM CHLORIDE 0.9% 100 ML IVPB ONE (13:30)
[2019-07-20] MEDS ORDERED: GENTAMICIN PER PHARMACY MISCELLANE PRN (13:33)
[2019-07-20] MEDS: DEXTROSE 5%-0.45% NACL 1,000 ML IV SCH ×2 (14:34→21:14)
[2019-07-20] MEDS: ESCITALOPRAM 10 MG TAB PO SCH (14:47)
[2019-07-20 14:50] LABS: HGB 11.8 gm/dL (11.4-16.0); MCH 29.8 pg (25.0-35.0); MCHC 32.7 g/dL (31.0-37.0); Mean Platelet Volume 7.8; Platelet Count 196 k/uL (150-450); RBC 3.96 m/uL (3.80-5.40); RDW 12.2 % (11.5-15.5); WBC 10.9 k/uL (3.8-10.6)
[2019-07-20 14:53] LABS: African American GFR (CKD) >90 (>60 ml/min/1.73 sqM); Anion Gap 8 mmol/L; Blood Urea Nitrogen 13 mg/dL (7-17); Carbon Dioxide 25 mmol/L (22-30); Chloride 106 mmol/L (98-107); Glucose 94 mg/dL (74-99); Non-African American GFR(CKD) >90 (>60 ml/min/1.73 sqM); Sodium 139 mmol/L (137-145)
--- NOTE | 2019-07-20 15:20 | P.HPIM ---
History of Present Illness 38 year Old female admitted for pyelonephritis and patient given with abdominal pain in the left side of the abdomen lower abdominal area. Patient was comparing of fever chills patient had high-grade fever apparently at [facility], patient does have leukocytosis patient believed that she may have pancreatitis which she had in the past patient had sharp abdominal pain and severe at that time presently mild, patient is found to have nephrolithiasis with the 6 minute levators right renal calculi as well as 2-5 mm left renal calculi. Patient is apparently ALLERGIC to amoxicillin which is a rash patient states she is ALLERGIC to cephalexin as well which she says is a calm resuscitation which is not ALLERGIC reaction or side effect. Because of this patient was started on levofloxacin and gentamicin was added by urology. They're recommending a stent placement. Patient denied any dysuria but that was comparing of increased urinary frequency and is unable to hold urine along with foul-smelling urine Review of Systems REVIEW OF SYSTEMS: CONSTITUTIONAL: No fever, no malaise, no fatigue. HEENT: No recent visual problems or hearing problems. Denied any sore throat. CARDIOVASCULAR: No chest pain, orthopnea, PND, no palpitations, no syncope. PULMONARY: No shortness of breath, no cough, no hemoptysis. GASTROINTESTINAL: As mentioned in HPI NEUROLOGICAL: No headaches, no weakness, no numbness. HEMATOLOGICAL: Denies any bleeding or petechiae. GENITOURINARY: Denies any burning micturition, frequency, or urgency. MUSCULOSKELETAL/RHEUMATOLOGICAL: Denies any joint pain, swelling, or any muscle pain. ENDOCRINE: Denies any polyuria or polydipsia. The rest of the 14-point review of systems is negative. 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, all 4 wisdom teeth surgically removed Past Anesthesia/Blood Transfusion Reactions: No Reported Reaction Past Psychological History: Anxiety, Depression, Panic Disorder Additional Psychological History / Comment(s): pt has a history of panic attacks, last one was 2017 Smoking Status: Never smoker Past Alcohol Use History: None Reported Past Drug Use History: None Reported - Past Family History Father Family Medical History: COPD, Deep Vein Thrombosis (DVT), Hyperlipidemia, Hypertension, Vascular Disorder Additional Family Medical History / Comment(s): parkinsons, MRSA Mother Family Medical History: No Reported History Medications and Allergies Home Medications Medication Instructions Recorded Confirmed Type Escitalopram [Lexapro] 10 mg PO DAILY 04/28/18 07/19/19 History Fluticasone Nasal [place] [Flonase 2 spr EA NOSTRIL QAM PRN 04/28/18 07/19/19 History Nasal [place]] Nutri Calm 1 tab PO HS PRN 04/28/18 07/19/19 History Vitamin B Complex 1 cap PO DAILY 04/28/18 07/19/19 History Ascorbic Acid [Vitamin C] 500 mg PO DAILY 07/19/19 07/19/19 History Distress Remedy Drops 10 drops PO DAILY PRN 07/19/19 07/19/19 History Flaxseed Oil 2,000 mg PO HS 07/19/19 07/19/19 History Julee Protein 1 tab PO BID 07/19/19 07/19/19 History Magnesium 200 mg PO HS 07/19/19 07/19/19 History Minera-Chi Tonic 15 ml PO W/SUPPER 07/19/19 07/19/19 History Nervous Fatigue Supplement 1 tab PO BID 07/19/19 07/19/19 History Probiotic 11 2 tab PO DAILY 07/19/19 07/19/19 History Allergies Allergy/AdvReac Type Severity Reaction Status Date / Time amoxicillin Allergy Unknown Verified 07/19/19 22:44 cephalexin [From Keflex] Allergy Unknown Verified 07/19/19 22:44 clavulanic acid Allergy Unknown Verified 07/19/19 22:44 [From Augmentin] pseudoephedrine Allergy Unknown Verified 07/19/19 22:44 Beef Containing Products AdvReac Abdominal Verified 07/19/19 22:44 [Beef] Pain corn AdvReac Rash/Hives Verified 07/19/19 22:44 latex AdvReac Rash/Hives Verified 07/19/19 22:44 Milk Containing Products AdvReac Abdominal Verified 07/19/19 22:44 [Dairy] Pain Pork/Porcine Containing AdvReac Abdominal Verified 07/19/19 22:44 Products Pain [Pork] wheat AdvReac Abdominal Verified 07/19/19 22:44 Pain Physical Exam Vitals: Vital Signs Temp Pulse Resp BP BP Pulse Ox 07/20/19 15:00 98.6 F 88 16 110/55 99 07/20/19 10:30 99.2 F 07/20/19 09:30 100.5 F H 07/20/19 07:00 98.7 F 88 16 94/58 99 07/20/19 05:00 14 07/20/19 00:09 98.6 F 83 14 100/63 97 07/19/19 23:02 15 07/19/19 22:33 98.3 F 84 15 110/71 99 07/19/19 20:38 98.2 F 18 128/75 98 Intake and Output 07/20/19 07/20/19 07/20/19 06:59 14:59 22:59 Other: Voiding Method Toilet Toilet # Voids 2 Weight 95.254 kg PHYSICAL EXAMINATION: GENERAL: The patient is alert and oriented x3, not in any acute distress. Well developed, well nourished. HEENT: Pupils are round and equally reacting to light. EOMI. No scleral icterus. No conjunctival pallor. Normocephalic, atraumatic. No pharyngeal erythema. No thyromegaly. CARDIOVASCULAR: S1 and S2 present. No murmurs, rubs, or gallops. PULMONARY: Chest is clear to auscultation, no wheezing or crackles. ABDOMEN: Soft, nontender, nondistended, normoactive bowel sounds. No palpable organomegaly. MUSCULOSKELETAL: No joint swelling or deformity. EXTREMITIES: No cyanosis, clubbing, or pedal edema. NEUROLOGICAL: Gross neurological examination did not reveal any focal deficits. SKIN: No rashes. Results CBC & Chem 7: 07/20/19 14:14 07/20/19 14:14 Labs: Abnormal Lab Results - Last 24 Hours (Table) 07/19/19 07/20/19 Range/Units 22:03 14:14 WBC 10.9 H (3.8-10.6) k/uL Urine Appearance Cloudy H (Clear) Urine Protein Trace H (Negative) Urine Blood Moderate H (Negative) Urine Nitrite Positive H (Negative) Ur Leukocyte Esterase Large H (Negative) Urine RBC >182 H (0-5) /hpf Urine WBC >182 H (0-5) /hpf Urine Bacteria Rare H (None) /hpf Microbiology - Last 24 Hours (Table) 07/19/19 22:03 Urine Culture - Preliminary Urine,Voided Thrombosis Risk Factor Assmnt - Choose All That Apply Each Factor Represents 1 point: Obesity (BMI >25) Each Risk Factor Represents 3 Points: Family history of DVT/PE Thrombosis Risk Factor Assessment Total Risk Factor Score: 4 Thrombosis Risk Factor Assessment Level: Moderate Risk Assessment and Plan Plan: -Sepsis secondary to pyelonephritis and the urinary tract infection secondary to ureteral calculus, neurology evaluated the patient patient can be continued on IV fluids and IV antibiotics as mentioned above. Repeat CBC tomorrow -Anxiety and depression for which patient is on Lexapro which will be continued -Nephrolithiasis as mentioned above patient will undergo stent placement -
[2019-07-20] MEDS ORDERED: ONDANSETRON 4 MG/2 ML VIAL IVP ONE (18:33)
[2019-07-20] MEDS ORDERED: fentaNYL (PF) 50 MCG/ML 2 ML AMP ONE (18:37)
[2019-07-20] MEDS ORDERED: LIDOCAINE 1% INJ 10MG/ML (20 ML MDV) ONE (18:37)
[2019-07-20] MEDS ORDERED: PROPOFOL 10 MG/ML 20 ML VIAL IV ONE (18:37)
[2019-07-20] MEDS ORDERED: KETOROLAC 30 MG/ML 1 ML VIAL ONE (18:37)
[2019-07-20] MEDS ORDERED: SUCCINYLCHOLINE CHLORIDE 100 MG/5 ML SYR IV ONE (18:37)
[2019-07-20] MEDS ORDERED: MIDAZOLAM 2 MG/2 ML VIAL ONE (18:37)
[2019-07-20] MEDS ORDERED: DEXTROSE 5%-0.45% NACL 1,000 ML IV ONE (18:41)
[2019-07-20] MEDS ORDERED: LACTATED RINGERS 1,000 ML IV ONE (19:19)
--- NOTE | 2019-07-20 19:23 | P.OP ---
Date of Procedure: 07/20/19 Preoperative Diagnosis: Left hydronephrosis secondary to left ureteral calculus Postoperative Diagnosis: Same Procedure(s) Performed: Cystoscopy, left ureteral stent insertion Anesthesia: PRIYANKAA Surgeon: Adrien Gallagher Estimated Blood Loss (ml): 0 IV fluids (ml): 450 Pathology: none sent Condition: stable Disposition: PACU Indications for Procedure: The patient is a 38-year-old white female admitted with a febrile UTI. A computed tomography scan shows evidence of left hydronephrosis due to a 4 mm left proximal ureteral calculus. She reports significant pain and comes for stent placement. Operative Findings: Successful left ureteral stent placement, resulting in drainage of cloudy urine from left renal pelvis. Description of Procedure: The patient was taken to the operating room and placed in the dorsolithotomy position, with legs supported in Edward stirrups. The external genitalia was prepped and draped sterilely. The 30 lens was used to introduce the 22-Thai Stortz cystoscopic sheath through the urethra and into the bladder under direct vision. The bladder was examined in its entirety. Both ureteral orifices were of normal anatomic location and configuration, and clear urine effluxed from both. No tumors or foreign bodies were seen. An angle-tipped 0.035 inch Glidewire was passed through the cystoscope. The left ureteral orifice was cannulated, and the Glidewire was slowly advanced up to the renal pelvis. A 26 cm, 6-Thai double-J ureteral stent was placed over the wire. However, the proximal end of the stent failed to curl suggesting the possibility that the stent was of inadequate length, leaving the proximal end of the stent within the proximal ureter. Therefore, the stent was exchanged for a 28 cm, 6-Thai double-J ureteral stent over the Glidewire. Proper stent positioning was verified fluoroscopically and endoscopically. The proximal end of the stent failed to uncurl, presumably because it was located within an upper pole calyx. Urine drained through the stent, mildly cloudy in appearance. With the beak of the cystoscope adjacent to the distal end of the stent, a urine specimen was obtained which was sent for culture and sensitivity. The bladder was emptied and the cystoscope removed. The patient tolerated the procedure well was taken to the recovery room in stable condition.
[2019-07-20] MEDS: LEVOFLOXACIN 750MG-D5W PMX 750 MG in DEXTROSE/WATER 1 150ML.BAG IVPB SCH (21:13)
[2019-07-21 07:08] LABS: African American GFR (CKD) >90 (>60 ml/min/1.73 sqM); Non-African American GFR(CKD) >90 (>60 ml/min/1.73 sqM)
--- NOTE | 2019-07-21 08:14 | FL ---
Fluoroscopy INDICATION: Pain FINDINGS: Fluoroscopy time: 34 seconds. Images obtained: 1. IMPRESSIONS: 1. Documentation of fluoroscopy.
[2019-07-21 09:12] LABS: HCT 31.9 % (34.0-46.0); HGB 10.9 gm/dL (11.4-16.0); MCH 31.1 pg (25.0-35.0); MCHC 34.1 g/dL (31.0-37.0); Mean Platelet Volume 9.2; Platelet Count 210 k/uL (150-450); RBC 3.51 m/uL (3.80-5.40); RDW 12.2 % (11.5-15.5); WBC 9.6 k/uL (3.8-10.6)
[2019-07-21] MEDS: ESCITALOPRAM 10 MG TAB PO SCH (09:45)
[2019-07-21 11:24] LABS: Band Neutrophils % 2 %; Lymphocytes # (M) 1.25 k/uL (1.0-4.8); Monocytes # (M) 1.06 k/uL (0-1.0); Neutrophils % (M) 74 %; Nucleated Red Blood Cells 0 /100 WBC (0-0); Total Cells Counted 100
--- NOTE | 2019-07-21 13:04 | P.PN ---
Progress Note - Text Progress Note Date: 07/21/19 The patient is feeling much better today. Her left-sided pain is significantly diminished. She reports mild stent discomfort. She is afebrile. Her urine culture was negative. It would be my recommendation that she be discharged home when she feels up to it, with a prescription for Levaquin empirically as she likely received antibiotics prior to the urine culture being obtained here, which may have resulted in a false-negative result. Arrangements will be made for her to undergo cystoscopy, left ureteral stent removal, left ureteroscopy with Holmium laser lithotripsy in 1-2 weeks.
[2019-07-21] MEDS ORDERED: GENTAMICIN 400 MG in SODIUM CHLORIDE 0.9% 100 ML IVPB SCH (14:00)
--- NOTE | 2019-07-21 15:27 | P.PN ---
Subjective Progress Note Date: 07/21/19 Principal diagnosis: 38 year Old female admitted for pyelonephritis and patient given with abdominal pain in the left side of the abdomen lower abdominal area. Patient was compar ing of fever chills patient had high-grade fever apparently at [facility], patient does have leukocytosis patient believed that she may have pancreatitis which she had in the past patient had sharp abdominal pain and severe at that time presently mild, patient is found to have nephrolithiasis with the 6 minute levators right renal calculi as well as 2-5 mm left renal calculi. Patient is apparently ALLERGIC to amoxicillin which is a rash patient states she is ALLERGIC to cephalexin as well which she says is a calm resuscitation which is not ALLERGIC reaction or side effect. Because of this patient was started on levofloxacin and gentamicin was added by urology. They're recommending a stent placement. Patient denied any dysuria but that was comparing of increased urinary frequency and is unable to hold urine along with foul-smelling urine 07/21/2019 Patient is sitting up in bed and appears to be in no acute distress. Patient continues to have some left-sided lower abdominal tenderness status post stent placement. Patient is currently on oxygen via nasal cannula 2 L and does not normally wear oxygen at home. Discussed with nursing staff about removing the oxygen and evaluating vitals. Currently patient denies any chest pain, shortness of breath, or palpitations. Patient has a low-grade fever today 99.2. Patient denies any nausea or vomiting and has been tolerating diet. Patient states that she is getting up to the commode to urinate but does not feel that she has the strength to get up probably to the bathroom yet. She denies any bowel movements at this time. Urology is following. Discussed with the patient about increasing her activity as tolerated and getting up and out of the bed. Objective - Vital Signs Vital signs: Vital Signs Temp 99.2 F 07/21/19 07:00 Pulse 76 07/21/19 08:15 Resp 17 07/21/19 08:15 BP 99/63 07/21/19 07:00 Pulse Ox 96 07/21/19 07:00 Intake & Output 07/20/19 07/21/19 07/21/19 18:59 06:59 18:59 Intake Total 450 450 200 Output Total 350 400 Balance 450 100 -200 Weight 95.254 kg Intake: IV 450 300 Intake, IV Titration 150 Amount Levofloxacin 750Mg-D5w 150 Pmx 750 mg In Dextrose/ Water 1 150ml.bag @ 100 mls/hr IVPB Q24H [facility] Rx#: [id number] Oral 200 Output: Urine 350 400 Estimated Blood Loss 0 Other: Voiding Method Toilet Toilet Toilet Bedside Commode Bedside Commode # Voids 2 1 - Exam GENERAL: The patient is alert and oriented x3, not in any acute distress. Well developed, well nourished. HEENT: Pupils are round and equally reacting to light. EOMI. No scleral icterus. No conjunctival pallor. Normocephalic, atraumatic. No pharyngeal erythema. No thyromegaly. CARDIOVASCULAR: S1 and S2 present. No murmurs, rubs, or gallops. PULMONARY: Chest is clear to auscultation, no wheezing or crackles. ABDOMEN: Soft, mild left side tenderness upon palpation, nondistended, nor moactive bowel sounds. No palpable organomegaly. MUSCULOSKELETAL: No joint swelling or deformity. EXTREMITIES: No cyanosis, clubbing, or pedal edema. NEUROLOGICAL: Gross neurological examination did not reveal any focal deficits. SKIN: No rashes. - Labs CBC & Chem 7: 07/21/19 06:31 07/21/19 06:31 Labs: Abnormal Lab Results - Last 24 Hours (Table) 07/21/19 Range/Units 06:31 RBC 3.51 L (3.80-5.40) m/uL Hgb 10.9 L (11.4-16.0) gm/dL Hct 31.9 L (34.0-46.0) % Monocytes # (Manual) 1.06 H (0-1.0) k/uL Microbiology - Last 24 Hours (Table) 07/19/19 22:03 Urine Culture - Final Urine,Voided 07/20/19 19:17 Urine Culture - Preliminary Urine,Voided Assessment and Plan Assessment: -Sepsis secondary to pyelonephritis and the urinary tract infection secondary to ureteral calculus, urology evaluated the patient patient can be continued on IV fluids and IV antibiotics as mentioned above. Repeat CBC tomorrow. WBC is 9.6, hemoglobin 10.9 -Anxiety and depression for which patient is on Lexapro which will be continued -Nephrolithiasis as mentioned above patient underwent left ureteral stent placement Plan: Continue the current medications and symptomatic treatment. Spoke to Dulce Monterroso about initial urinalysis and culture report and is currently pending at this time. Was told they would fax the report when it is available. Will remove the oxygen and monitor patient's vital signs and labs closely. Encoura ged patient to increase activity as tolerated. Will repeat a.m. labs. Further recommendations to follow. Probable discharge in the a.m.
[2019-07-21] MEDS: DEXTROSE 5%-0.45% NACL 1,000 ML IV SCH ×2 (19:00→21:50)
[2019-07-21] MEDS ORDERED: SODIUM CHLORIDE 0.9% 500 ML 500 ML IV ONE ×2 (19:48→23:40)
[2019-07-21] MEDS: KETOROLAC 30 MG/ML 1 ML VIAL IVP PRN (20:00)
[2019-07-21] MEDS: LEVOFLOXACIN 750MG-D5W PMX 750 MG in DEXTROSE/WATER 1 150ML.BAG IVPB SCH (21:50)
[2019-07-21] MEDS ORDERED: ACETAMINOPHEN TAB 325 MG TAB PO PRN (23:39)
[2019-07-21] MEDS ORDERED: DEXTROSE 5%-0.9% NACL 1,000 ML IV SCH (23:45)
[2019-07-22 07:58] LABS: African American GFR (CKD) >90 (>60 ml/min/1.73 sqM); Non-African American GFR(CKD) >90 (>60 ml/min/1.73 sqM)
[2019-07-22 08:29] VITALS: BP 105/66; PULSE 55; RESP 18; TEMP 98.1
[2019-07-22 08:35] LABS: HCT 32.1 % (34.0-46.0); HGB 10.9 gm/dL (11.4-16.0); MCH 30.8 pg (25.0-35.0); MCHC 33.8 g/dL (31.0-37.0); Mean Platelet Volume 8.1; Platelet Count 189 k/uL (150-450); RBC 3.52 m/uL (3.80-5.40); RDW 12.1 % (11.5-15.5); WBC 5.8 k/uL (3.8-10.6)
[2019-07-22 09:10] LABS: Band Neutrophils % 1 %; Eosinophils # (M) 0.23 k/uL (0-0.7); Lymphocytes # (M) 1.57 k/uL (1.0-4.8); Monocytes # (M) 0.64 k/uL (0-1.0); Neutrophils % (M) 57 %; Nucleated Red Blood Cells 0 /100 WBC (0-0); Total Cells Counted 100
[2019-07-22 09:14] LABS: Poikilocytosis (M) Present
[2019-07-22] MEDS: ESCITALOPRAM 10 MG TAB PO SCH (09:34)
--- NOTE | 2019-07-22 10:39 | P.PN ---
Progress Note - Text Progress Note Date: 07/22/19 The patient states that she is feeling much better today. Her pain has essentially resolved. She is afebrile. The intraoperative urine culture was negative, as was the urine culture obtained at the time of admission. Nonetheless, she received Rocephin prior to being transferred from [facility], and therefore there is a possibility that these cultures are false-negative. In view of this, I intend to treat her empirically with an additional 5 days of Levaquin. She is urologically stable for discharge. Arrangements will be made for her to undergo elective cystoscopy, left ureteral stent removal, left ureteroscopy with Holmium laser lithotripsy. Please notify me if I can be of any further assistance.
--- NOTE | 2019-07-22 14:27 | P.DS ---
Providers Date of admission: 07/19/19 21:01 Expected date of discharge: 07/22/19 Attending physician: Wisam Fowler Consults: 07/19/19 21:22 Consult Physician Routine Consulting Provider: Adrien Gallagher Consult Reason/Comments: stone Do you want consulting provider notified?: Yes Primary care physician: Be Everett MD Hospital Course: Final diagnosis -Sepsis secondary to pyelonephritis and the urinary tract infection secondary to ureteral calculus -Anxiety and depression -Nephrolithiasis Discharge disposition Patient is being discharged in a stable condition with guarded prognosis to home and will follow-up with her primary care provider Ko Everett in [place] upon discharge. Patient will also follow-up with Dr. Gallagher urology in 2 weeks in the outpatient setting. Patient will continue a short course of oral antibiotics in the form of Levaquin for 5 days. Total time taken is 35 minutes. History of present illness 38 year Old female admitted for pyelonephritis and patient given with abdominal pain in the left side of the abdomen lower abdominal area. Patient was comparing of fever chills patient had high-grade fever apparently at [facility], patient does have leukocytosis patient believed that she may have pancreatitis which she had in the past patient had sharp abdominal pain and severe at that time presently mild, patient is found to have nephrolithiasis with the 6 minute levators right renal calculi as well as 2-5 mm left renal calculi. Patient is apparently ALLERGIC to amoxicillin which is a rash patient states she is ALLERGIC to cephalexin as well which she says is a calm resuscitation which is not ALLERGIC reaction or side effect. Because of this patient was started on levofloxacin and gentamicin was added by urology. They're recommending a stent placement. Patient denied any dysuria but that was comparing of increased urinary frequency and is unable to hold urine along with foul-smelling urine 07/21/2019 Patient is sitting up in bed and appears to be in no acute distress. Patient continues to have some left-sided lower abdominal tenderness status post stent placement. Patient is currently on oxygen via nasal cannula 2 L and does not normally wear oxygen at home. Discussed with nursing staff about removing the oxygen and evaluating vitals. Currently patient denies any chest pain, shortness of breath, or palpitations. Patient has a low-grade fever today 99.2. Patient denies any nausea or vomiting and has been tolerating diet. Patient states that she is getting up to the commode to urinate but does not feel that she has the strength to get up probably to the bathroom yet. She denies any bowel movements at this time. Urology is following. Discussed with the patient about increasing her activity as tolerated and getting up and out of the bed. 07/22/2019 Patient is currently sitting up at the side of the bed in no acute distress. Patient has been up and walking and left-sided pain is minimal. Patient is urinating with no difficulties but continues to notice smell. Patient will be continued on oral antibiotics in the form of Levaquin for the next 5 days and then may discontinue. Patient has been afebrile since yesterday. Patient denies any nausea and vomiting and has been tolerating diet. Patient states that she has not had a bowel movement but is passing gas. Patient instructed to use MiraLAX as she has at home in the past for constipation. Patient also instructed to encourage fluids and monitor for any fevers. Prescription for Tylenol was given his patient states she has not home. Currently patient denies any chest pain, shortness of breath, or palpitations. Patient is afebrile. Patient's condition is stable and is ready for discharge today. Patient will follow-up with urology in the outpatient setting in approximately 2 weeks for possible stent removal and lithotripsy. On exam vital signs are stable. Temp is 98.1F, pulse is 55, respirations are 18, blood pressure is 105/66, oxygen saturation is 99% on room air. Cardio S1, S2 are present. Respiratory system shows clear to auscultation. Abdomen is soft and nontender. Nervous system shows no focal deficits. Please refer to medication reconciliation sheet for a list of medications. Patient Condition at Discharge: Stable Plan - Discharge Summary Discharge Rx Participant: Yes New Discharge Prescriptions: New Levofloxacin [Levaquin] 500 mg PO DAILY 5 Days #5 tab Acetaminophen Tab [Tylenol] 650 mg PO Q6HR PRN #30 tab PRN Reason: Fever And/ Or Pain Polyethylene Glycol 3350 [Miralax] 17 gm PO DAILY #10 packet Continue Vitamin B Complex 1 cap PO DAILY Nutri Calm 1 tab PO HS PRN PRN Reason: Anxiety Fluticasone Nasal [place] [Flonase Nasal [place]] 2 spr EA NOSTRIL QAM PRN PRN Reason: Allergy Symptoms Escitalopram [Lexapro] 10 mg PO DAILY Probiotic 11 2 tab PO DAILY Nervous Fatigue Supplement 1 tab PO BID Magnesium 200 mg PO HS Flaxseed Oil 2,000 mg PO HS Julee Protein 1 tab PO BID Distress Remedy Drops 10 drops PO DAILY PRN PRN Reason: Anxiety Ascorbic Acid [Vitamin C] 500 mg PO DAILY Minera-Chi Tonic 15 ml PO W/SUPPER Discharge Medication List Escitalopram [Lexapro] 10 mg PO DAILY 04/28/18 [History] Fluticasone Nasal [place] [Flonase Nasal [place]] 2 spr EA NOSTRIL QAM PRN 04/28/18 [History] Nutri Calm 1 tab PO HS PRN 04/28/18 [History] Vitamin B Complex 1 cap PO DAILY 04/28/18 [History] Ascorbic Acid [Vitamin C] 500 mg PO DAILY 07/19/19 [History] Distress Remedy Drops 10 drops PO DAILY PRN 07/19/19 [History] Flaxseed Oil 2,000 mg PO HS 07/19/19 [History] Julee Protein 1 tab PO BID 07/19/19 [History] Magnesium 200 mg PO HS 07/19/19 [History] Minera-Chi Tonic 15 ml PO W/SUPPER 07/19/19 [History] Nervous Fatigue Supplement 1 tab PO BID 07/19/19 [History] Probiotic 11 2 tab PO DAILY 07/19/19 [History] Acetaminophen Tab [Tylenol] 650 mg PO Q6HR PRN #30 tab 07/22/19 [Rx] Levofloxacin [Levaquin] 500 mg PO DAILY 5 Days #5 tab 07/22/19 [Rx] Polyethylene Glycol 3350 [Miralax] 17 gm PO DAILY #10 packet 07/22/19 [Rx] Follow up Appointment(s)/Referral(s): Adrien Gallagher MD [STAFF PHYSICIAN] - 2 Weeks (office not answering. Please call to make appointment) Be Everett MD [Primary Care Provider] - 07/23/19 2:00 pm Activity/Diet/Wound Care/Special Instructions: Activity Limited until follow-up and advance activity as tolerated Continue to cough and deep breathe Continue with antibiotics for 5 days until finished Follow-up with primary care provider upon discharge Follow-up with urology in 1-2 weeks as discussed Encourage fluids and rest Continue taking Tylenol as needed for pain and if fever develops Continue current diet Discharge Disposition: HOME SELF-CARE
[2019-07-22] MEDS ORDERED: LEVOFLOXACIN 750 MG TAB PO SCH (21:00)
== END 2019-07-22 14:40 | disposition home or self-care (01) | DRG 854 ==
LOC: EC 20:33 → 4SSUR 21:01
PROVIDERS: ADMIT Hospitalist; ATTEND Hospitalist
PROC: 0T778DZ Dilation of Left Ureter with Intraluminal Device, Via Natural or Artificial Opening Endoscopic (ICD-10-PCS; principal; 2019-07-20 09:50)
DX: A41.9 Sepsis, unspecified organism (principal); N13.6 Pyonephrosis; F32.9 Major depressive disorder, single episode, unspecified; F41.0 Panic disorder [episodic paroxysmal anxiety]; H91.90 Unspecified hearing loss, unspecified ear; Z79.899 Other long term (current) drug therapy; Z82.0 Family history of epilepsy and other diseases of the nervous system; Z82.49 Family history of ischemic heart disease and other diseases of the circulatory system; Z82.5 Family history of asthma and other chronic lower respiratory diseases; Z87.442 Personal history of urinary calculi; Z88.0 Allergy status to penicillin; Z88.1 Allergy status to other antibiotic agents; Z88.8 Allergy status to other drugs, medicaments and biological substances
CPT/HCPCS: 80048; 80170; 81001; 82565; 84703; 85025; 85027; 87086; 99285

== ENCOUNTER → 2019-12-30 | Outpatient (CLI) | payer BC ==
--- NOTE | 2019-12-30 14:51 | XR ---
EXAMINATION TYPE: XR KUB DATE OF EXAM: 12/30/2019 COMPARISON: None HISTORY: Left renal calculus TECHNIQUE: AP supine pelvis FINDINGS: There is ar calcification within the left hemipelvis could be a small phlebolith or distal ureteral stone measuring 0.4 cm. Couple of small phleboliths or distal ureteral stones are on the rig ht. There is a calcification at the inferior pole left kidney measuring 0.3 cm. Punctate calcification ma y overlie the right renal contour. This could be within fecal debris within the colon. No organomegaly is evident. Mass effect is not evident. Sacroiliac joint degenerative changes are not ed. IMPRESSION: 1. Few scattered calcifications including over the bilateral kidneys are within the pelvis are nonsp ecific and could be related to renal stones, ureteral stones, or phleboliths.
== END | disposition home or self-care (01) ==
LOC: RADXRMAIN 14:34
PROVIDERS: ATTEND Urology
DX: N20.0 Calculus of kidney (principal)
CPT/HCPCS: 74018